=== PATIENT | female | born 1960 | race Caucasian/White ===

== ENCOUNTER 2016-12-18 10:37 | Inpatient (IN) | payer BC ==
[~2016-12-18] VITALS: Ht 154.9 cm; Wt 43.8 kg
[~2016-12-18 10:37] MED LIST: CEFUROXIME500 MG PO; LOPRESSOR 25 MG25 MG PO; MEDROL4 MG PO; MULTI-BETIC TA1 EACH PO; PROAIR HFA8.5 GM INH; SINGULAIR10 MG PO; SPIRIVA HANDIH18 MCG INH; ZITHROMAX250 MG PO
[2016-12-18 13:46] LABS: RED BLOOD COUNT 4.12 M/UL (4.00-5.10); WHITE BLOOD COUNT 7.6 K/UL (4.5-11.0)
[2016-12-18 14:52] LABS: BUN/CREATININE RATIO 23 (0-10)
[2016-12-18] MEDS ORDERED: SYMBICORT 160-1 INHA INH (21:27)
[2016-12-18] MEDS ORDERED: PROAIR HFA8.5 GM INH (21:28)
[2016-12-19 05:26] LABS: HEMOGLOBIN 12.9 gm/dl (12.3-15.3); RED BLOOD COUNT 4.12 M/UL (4.00-5.10)
[2016-12-19 05:27] LABS: WHITE BLOOD COUNT 4.3 K/UL (4.5-11.0)
[2016-12-19 05:49] LABS: BUN/CREATININE RATIO 24 (0-10)
[2016-12-20 06:57] LABS: HEMOGLOBIN 13.1 gm/dl (12.3-15.3); RED BLOOD COUNT 4.12 M/UL (4.00-5.10)
[2016-12-20 07:25] LABS: WHITE BLOOD COUNT 10.2 K/UL (4.5-11.0)
[2016-12-20 07:48] LABS: BUN/CREATININE RATIO 26 (0-10)
[2016-12-24] MEDS ORDERED: LEVAQUIN500 MG PO (14:14)
[2016-12-24] MEDS ORDERED: MEDROL TAB 4 MG4 MG PO (14:16)
== END 2016-12-24 16:07 | disposition home or self-care (01) | DRG 189 ==
LOC: ER1 10:37 → ZEROF 16:40 → M/S 17:30
PROVIDERS: Physician Assistant; ADMIT Internal Medicine
DX: J96.21 Acute and chronic respiratory failure with hypoxia (principal); J44.1 Chronic obstructive pulmonary disease with (acute) exacerbation; J44.0 Chronic obstructive pulmonary disease with (acute) lower respiratory infection; E44.0 Moderate protein-calorie malnutrition; Z68.1 Body mass index [BMI] 19.9 or less, adult; J20.9 Acute bronchitis, unspecified; J96.22 Acute and chronic respiratory failure with hypercapnia; R91.8 Other nonspecific abnormal finding of lung field; I10 Essential (primary) hypertension; Z87.891 Personal history of nicotine dependence; E88.01 Alpha-1-antitrypsin deficiency; M81.0 Age-related osteoporosis without current pathological fracture; Z87.310 Personal history of (healed) osteoporosis fracture; Z88.5 Allergy status to narcotic agent; Z88.8 Allergy status to other drugs, medicaments and biological substances; Z79.51 Long term (current) use of inhaled steroids; Z79.899 Other long term (current) drug therapy; Z99.81 Dependence on supplemental oxygen
CPT/HCPCS: 36415; 36600; 71010; 71020; 71250; 80048; 80053; 82550; 82553; 82803; 83735; 83874; 84484; 85025; 85027; 87040; 93005; 94640; 94664; 96374; 96375; 99285; J1650; J1956; J2920; J2930; J7030; J7509

== ENCOUNTER 2022-01-12 07:24 | Emergency (ER) | payer BC ==
[~2022-01-12 07:24] MED LIST changes: +LEVAQUIN500 MG PO; +MEDROL TAB 4 MG4 MG PO; +SYMBICORT 160-1 INHA INH
[2022-01-12 08:51] LABS: HEMOGLOBIN 12.5 gm/dl (12.3-15.3); RED BLOOD COUNT 3.89 M/UL (4.00-5.10); WHITE BLOOD COUNT 8.9 K/UL (4.5-11.0)
[2022-01-12 09:25] LABS: BUN/CREATININE RATIO 15 (0-10)
[2022-01-12] MEDS ORDERED: PREDNISONE 20 M20 MG PO (12:31)
== END 2022-01-12 13:10 | disposition home or self-care (01) ==
LOC: ER1 07:24
PROVIDERS: Physician Assistant
DX: J44.1 Chronic obstructive pulmonary disease with (acute) exacerbation (principal); I10 Essential (primary) hypertension
CPT/HCPCS: 71045; 72100; 80053; 82550; 82553; 83605; 84484; 85025; 93005; 94640; 94664; 94760; 96374; 99285; J1100